=== PATIENT | male | born 1965 | race Caucasian/White ===

== ENCOUNTER 2019-01-16 16:03 | Emergency (ER) | payer SELFPAY ==
[~2019-01-16] VITALS: Ht 188 cm; Wt 136.1 kg
[~2019-01-16 16:03] MED LIST: ADVAIR 100-501 EACH INH; PROAIR HFA8.5 GM IH; RISPERDAL4 MG PO
[2019-01-16] MEDS ORDERED: AMOXICILLIN500 MG PO (17:05)
[2019-01-16] MEDS ORDERED: NORCO 5-325 TA1 EACH PO (17:05)
== END 2019-01-16 17:11 | disposition home or self-care (01) ==
LOC: ED 16:03
DX: K08.89 Other specified disorders of teeth and supporting structures (principal); F17.200 Nicotine dependence, unspecified, uncomplicated
CPT/HCPCS: 99282

== ENCOUNTER 2021-08-08 19:57 | Emergency (ER) | payer SELFPAY ==
[~2021-08-08] VITALS: Ht 188 cm; Wt 136.1 kg
[~2021-08-08 19:57] MED LIST changes: +AMOXICILLIN500 MG PO; +NORCO 5-325 TA1 EACH PO
[2021-08-08] MEDS ORDERED: METFORMIN HCL750 MG PO (23:26)
--- NOTE | 2021-08-10 17:27 | EKG ---
[facility] [address] [facility] [place] [address] Signed Sinus tachycardia Left posterior fascicular block Possible Inferior infarct , age undetermined Abnormal ECG No previous ECGs available Confirmed by MAHIN PEREZ MD ([id number] on 08/10/2021 5:27:02 PM Electronically Signed By: MAHIN PEREZ MD 08/10/21 1727 PATIENT NAME: SARA WICK Electrocardiogram DATE OF : 61 PHYSICIAN: MAHIN PEREZ MD REPORT #: [id number] REPORT IS CONFIDENTIAL AND NOT TO BE RELEASED WITHOUT AUTHORIZATION
== END 2021-08-08 23:50 | disposition home or self-care (01) ==
LOC: ED 19:57
DX: E11.9 Type 2 diabetes mellitus without complications (principal); J44.9 Chronic obstructive pulmonary disease, unspecified; F17.200 Nicotine dependence, unspecified, uncomplicated
CPT/HCPCS: 36415; 70450; 71045; 71260; 80053; 83735; 84484; 85025; 85379; 85610; 93005; 93010; 99284-25; J1815; J7030; Q9967